=== PATIENT | male | born 1985 | race Hispanic/Latino ===

== ENCOUNTER 2020-02-12 17:40 | Emergency (ER) | payer MEDICARE, MEDICAID ==
--- NOTE | 2020-02-12 19:09 | RAD ---
Right ankle: 3 VIEWS INDICATION:Injury and pain COMPARISON:None FINDINGS: Minimal soft tissue swelling. No evidence of fracture. No osseous abnormality identified. IMPRESSION: No evidence of fracture
== END 2020-02-12 19:30 | disposition home or self-care (01) ==
LOC: ERS 17:40
DX: S93.401A Sprain of unspecified ligament of right ankle, initial encounter (principal); I10 Essential (primary) hypertension; E11.9 Type 2 diabetes mellitus without complications; E78.5 Hyperlipidemia, unspecified; W01.0XXA Fall on same level from slipping, tripping and stumbling without subsequent striking against object, initial encounter